=== PATIENT | female | born 1950 | race Caucasian/White ===

== ENCOUNTER 2018-01-10 14:43 | Outpatient (CLI) | payer MEDICARE | END 2018-01-10 14:44 | disposition home or self-care (01) | LOC: BICMAMMO 14:43 | PROVIDERS: ATTEND Family Medicine | DX: Z12.31 Encounter for screening mammogram for malignant neoplasm of breast (principal) | CPT/HCPCS: 77063; 77067 ==

== ENCOUNTER 2019-10-02 11:55 | Outpatient (CLI) | payer MEDICARE ==
--- NOTE | 2019-10-02 14:26 | MMO ---
Bilateral MAMMO Bilat Screen [facility]. CLINICAL HISTORY: Patient is 69 years old and is seen for screening. The patient has no family history of breast cancer. The patient has no personal history of cancer. VIEWS: The views performed were: bilateral craniocaudal with tomosynthesis and bilateral mediolateral oblique with tomosynthesis. FILMS COMPARED: The present examination has been compared to a prior imaging study performed at [facility] on 01/10/2018. This study has been interpreted with the assistance of computer-aided detection. MAMMOGRAM FINDINGS: There are scattered fibroglandular densities. There are no suspicious masses, suspicious calcifications, or new areas of architectural distortion. IMPRESSION: THERE IS NO MAMMOGRAPHIC EVIDENCE OF MALIGNANCY. A ROUTINE FOLLOW-UP MAMMOGRAM IN 1 YEAR IS RECOMMENDED. THE RESULTS OF THIS EXAM WERE SENT TO THE PATIENT. ACR BI-RADS Category 1 - Negative MAMMOGRAPHY NOTE: 1. A negative mammogram report should not delay a biopsy if a dominant of clinically suspicious mass is present. 2. Approximately 10% to 15% of breast cancers are not detected by mammography. 3. Adenosis and dense breasts may obscure an underlying neoplasm. Reported by: OLGA CANELA MD Electonically Signed: [id number]
== END 2019-10-02 11:56 | disposition home or self-care (01) ==
LOC: BICMAMMO 11:55
PROVIDERS: ATTEND Family Medicine
DX: Z12.31 Encounter for screening mammogram for malignant neoplasm of breast (principal)
CPT/HCPCS: 77063; 77067

== ENCOUNTER 2021-01-27 12:59 | Outpatient (CLI) | payer MEDICARE, OTHER | END 2021-01-27 13:00 | disposition home or self-care (01) | LOC: BICMAMMO 12:59 | PROVIDERS: ATTEND Family Medicine | DX: Z12.31 Encounter for screening mammogram for malignant neoplasm of breast (principal) | CPT/HCPCS: 77063; 77067 ==

== ENCOUNTER 2021-11-02 08:43 | Inpatient (IN) | payer MEDICARE, OTHER ==
[2021-11-02] MEDS ORDERED: niCARdipine 25 MG/10 ML VIAL ONE ×3 (09:09→09:18)
[2021-11-02] MEDS ORDERED: Mannitol 12.5 GM/50 ML ONE (09:11)
[2021-11-02] MEDS ORDERED: manNITOL 20% 500 ML ONE (09:16)
[2021-11-02 09:37] LABS: #Lymphocytes 0.4 thou/uL (1.20-3.40); #Monocytes 0.2 thou/uL (0.11-0.59); #Neutrophils 7.8 thou/uL (1.40-6.50); %Basophils 0.3 % (0.0-1.0); %Eosinophils 0.3 % (0.0-10.0); %Monocytes 2.7 % (0.0-10.0); %Neutrophils 91.7 % (42.0-75.0); Hemoglobin 14.5 g/dL (12.0-16.0); Mean Corpuscular HGB CONC 33.7 g/dL (32.0-36.0); Mean Platelet Volume 8.2 fL (7.4-10.4); Platelet Count 159 thou/uL (130-400); RBC Distribution Width 10.7 % (11.5-14.5); Red Blood Cell (RBC) Count 4.28 mill/uL (4.20-5.40); White Blood Cell (WBC) Count 8.5 thou/uL (4.8-10.8)
[2021-11-02 09:47] LABS: INR-International Normal Ratio 0.9; Prothrombin Time 12.7 sec (12.0-14.7)
[2021-11-02 09:50] LABS: PTT 22.7 sec (22.9-36.1)
[2021-11-02 10:03] LABS: ALT (SGPT) 17 U/L (8-55); AST (SGOT) 20 U/L (5-34); Albumin 4.2 g/dL (3.4-4.8); Alkaline Phosphatase 73 U/L (40-110); Anion Gap 17 mmol/L (10-20); BUN (Urea Nitrogen) 26 mg/dL (9.8-20.1); Bilirubin, Total 0.5 mg/dL (0.2-1.2); Calc. Creatinine Clearance 0 mL/min (70-130); Carbon Dioxide 20 mmol/L (23-31); Chloride 107 mmol/L (98-107); Glucose 145 mg/dL (83-110); Potassium 4.2 mmol/L (3.5-5.1); Protein, Total 7.2 g/dL (5.8-8.1); Sodium 140 mmol/L (136-145)
[2021-11-02 10:38] LABS: Bilirubin Negative (Negative); Blood, Urine Negative (Negative); Clarity Clear (Clear); Glucose, Urine (Dipstick) Normal (Negative); Ketone, Urine Negative (Negative); Leukocyte Negative Leu/uL (Negative); Nitrite Negative (Negative); Protein, Urine (Dipstick) 10 mg/dL (Neg-Trace); Specific Gravity, Urine 1.012 (1.002-1.036); Urobilinogen Normal mg/dL (Less than 2); pH, Urine 6.5 (5.0-9.0)
[2021-11-02] MEDS ORDERED: Ondansetron PF 4 MG/2 ML Vial IVP PRN (11:03)
[2021-11-02] MEDS ORDERED: Electrolyte Replacement Protocol 1 EACH IVPB ONE (11:03)
[2021-11-02] MEDS: Sodium Chloride 0.9% 1,000 ML IV SCH (11:15)
[2021-11-02 11:32] LABS: SARS-CoV-2 NAA Rapid Test DETECTED (NotDetected)
[2021-11-02] MEDS ORDERED: Electrolyte Replacement Protocol FS PRN (13:15)
[2021-11-02] MEDS: niCARdipine 25 MG in Sodium Chloride 0.9% 250 ML 250 ML IVPB PRN ×2 (16:13→21:37)
[2021-11-02] MEDS: Famotidine/PF 20 mg/2ml Vial SLOW IVP SCH (20:38)
[2021-11-03] MEDS: Sodium Chloride 0.9% 1,000 ML IV SCH ×2 (01:47→15:06)
[2021-11-03] MEDS: niCARdipine 25 MG in Sodium Chloride 0.9% 250 ML 250 ML IVPB PRN ×3 (03:25→18:26)
[2021-11-03 04:01] LABS: #Lymphocytes 0.4 thou/uL (1.20-3.40); #Monocytes 0.5 thou/uL (0.11-0.59); %Basophils 0.1 % (0.0-1.0); %Eosinophils 0.1 % (0.0-10.0); %Lymphocytes 3.6 % (21.0-51.0); %Monocytes 5.5 % (0.0-10.0); %Neutrophils 90.7 % (42.0-75.0); Hemoglobin 14.4 g/dL (12.0-16.0); Mean Corpuscular HGB CONC 35.3 g/dL (32.0-36.0); Mean Corpuscular Hemoglobin 35.6 pg (27.0-31.0); Mean Platelet Volume 8.1 fL (7.4-10.4); Platelet Count 165 thou/uL (130-400); Red Blood Cell (RBC) Count 4.06 mill/uL (4.20-5.40); White Blood Cell (WBC) Count 9.9 thou/uL (4.8-10.8)
[2021-11-03 04:21] LABS: Anion Gap 16 mmol/L (10-20); BUN (Urea Nitrogen) 16 mg/dL (9.8-20.1); Calc. Creatinine Clearance 63 mL/min (70-130); Calcium 9.9 mg/dL (7.8-10.44); Carbon Dioxide 20 mmol/L (23-31); Chloride 111 mmol/L (98-107); Cholesterol 146 mg/dl (< 200 Desired); Glucose 161 mg/dL (83-110); HDL Cholesterol 74 mg/dL (>60 Neg Risk); LDL Cholesterol, Calculated 64 mg/dL; Potassium 3.9 mmol/L (3.5-5.1); Sodium 143 mmol/L (136-145); Triglycerides 41 mg/dL (Less than 150)
[2021-11-03] MEDS ORDERED: FLU VACC QS2021-22(65YR UP)/PF 240 MCG/0.7 ML SYRINGE IM ONE (09:00)
[2021-11-03] MEDS: Famotidine/PF 20 mg/2ml Vial SLOW IVP SCH ×2 (09:23→21:02)
[2021-11-04 04:33] LABS: Anion Gap 13 mmol/L (10-20); BUN (Urea Nitrogen) 16 mg/dL (9.8-20.1); Calc. Creatinine Clearance 67 mL/min (70-130); Calcium 9.8 mg/dL (7.8-10.44); Carbon Dioxide 25 mmol/L (23-31); Chloride 112 mmol/L (98-107); Glucose 153 mg/dL (83-110); Potassium 3.6 mmol/L (3.5-5.1); Sodium 146 mmol/L (136-145)
[2021-11-04] MEDS: Sodium Chloride 0.9% 1,000 ML IV SCH (04:56)
[2021-11-04] MEDS: niCARdipine 25 MG in Sodium Chloride 0.9% 250 ML 250 ML IVPB PRN ×3 (05:50→20:18)
[2021-11-04] MEDS ORDERED: Mannitol 12.5 GM/50 ML SLOW IVP SCH (09:00)
[2021-11-04] MEDS: Famotidine/PF 20 mg/2ml Vial SLOW IVP SCH ×2 (09:45→20:17)
[2021-11-04] MEDS ORDERED: Communication Order-Pharmacy FS PRN (09:51)
[2021-11-04] MEDS: STERILE WATER IV SCH ×2 (11:19→23:24)
[2021-11-04] MEDS: SODIUM CHLORIDE IV SCH ×2 (11:19→23:24)
[2021-11-04 16:41] LABS: Sodium 151 mmol/L (136-145)
[2021-11-04] MEDS ORDERED: Acetaminophen 500 MG TAB PER TUBE SCH (18:00)
[2021-11-04 18:11] LABS: Sodium 151 mmol/L (136-145)
[2021-11-04 23:48] LABS: Sodium 155 mmol/L (136-145)
[2021-11-05 05:28] LABS: Band 9 % (5-11); Hemoglobin 13.5 g/dL (12.0-16.0); Lymphocytes 3 % (21-51); MDiff Complete? YES; Mean Corpuscular HGB CONC 33.7 g/dL (32.0-36.0); Mean Corpuscular Hemoglobin 34.3 pg (27.0-31.0); Mean Platelet Volume 8.1 fL (7.4-10.4); Monocytes 13 % (0-10); Neutrophil 75 % (42-75); Platelet Count 146 thou/uL (130-400); RBC Distribution Width 11.2 % (11.5-14.5); Red Blood Cell (RBC) Count 3.95 mill/uL (4.20-5.40); White Blood Cell (WBC) Count 4.7 thou/uL (4.8-10.8)
[2021-11-05 05:34] LABS: Anion Gap 16 mmol/L (10-20); BUN (Urea Nitrogen) 18 mg/dL (9.8-20.1); Calc. Creatinine Clearance 69 mL/min (70-130); Carbon Dioxide 23 mmol/L (23-31); Chloride 122 mmol/L (98-107); Glucose 151 mg/dL (83-110); Potassium 3.5 mmol/L (3.5-5.1); Sodium 157 mmol/L (136-145)
[2021-11-05] MEDS: Acetaminophen 650 MG/20.3 ML UDCUP PER TUBE SCH ×5 (06:13→23:31)
[2021-11-05] MEDS: niCARdipine 25 MG in Sodium Chloride 0.9% 250 ML 250 ML IVPB PRN ×3 (09:22→20:25)
[2021-11-05] MEDS: Famotidine/PF 20 mg/2ml Vial SLOW IVP SCH ×2 (09:22→20:25)
[2021-11-05] MEDS ORDERED: Sodium Chloride 0.9% 1,000 ML IV SCH (09:30)
[2021-11-05] MEDS: Potassium Chloride 20 MEQ in Premix Bag 1 BAG IVPB SCH ×2 (09:50→12:44)
[2021-11-05] MEDS ORDERED: Potassium Chloride 20 MEQ in Premix Bag 1 BAG IVPB SCH (12:45)
[2021-11-05 14:22] LABS: Anion Gap 17 mmol/L (10-20); BUN (Urea Nitrogen) 19 mg/dL (9.8-20.1); Calc. Creatinine Clearance 60 mL/min (70-130); Calcium 9.3 mg/dL (7.8-10.44); Carbon Dioxide 25 mmol/L (23-31); Chloride 121 mmol/L (98-107); Glucose 160 mg/dL (83-110); Potassium 3.6 mmol/L (3.5-5.1); Sodium 159 mmol/L (136-145)
[2021-11-05] MEDS: Sodium Chloride 0.45% 1,000 ML IV SCH (17:01)
[2021-11-05 19:00] LABS: Sodium 159 mmol/L (136-145)
[2021-11-06 01:42] LABS: Sodium 158 mmol/L (136-145)
[2021-11-06] MEDS: niCARdipine 25 MG in Sodium Chloride 0.9% 250 ML 250 ML IVPB PRN ×4 (02:57→21:58)
[2021-11-06] MEDS: Acetaminophen 650 MG/20.3 ML UDCUP PER TUBE SCH ×3 (06:15→18:35)
[2021-11-06 06:22] LABS: Anion Gap 12 mmol/L (10-20); BUN (Urea Nitrogen) 21 mg/dL (9.8-20.1); Calc. Creatinine Clearance 57 mL/min (70-130); Calcium 9.5 mg/dL (7.8-10.44); Carbon Dioxide 26 mmol/L (23-31); Chloride 122 mmol/L (98-107); Glucose 156 mg/dL (83-110); Potassium 3.7 mmol/L (3.5-5.1); Sodium 156 mmol/L (136-145)
[2021-11-06] MEDS: Sodium Chloride 0.45% 1,000 ML IV SCH ×2 (06:34→18:38)
[2021-11-06] MEDS ORDERED: Metoprolol Tartrate 25 MG TAB PO SCH (09:00)
[2021-11-06] MEDS: Famotidine/PF 20 mg/2ml Vial SLOW IVP SCH ×2 (09:18→20:03)
[2021-11-06 09:22] LABS: Band 38 % (5-11); Hemoglobin 15.6 g/dL (12.0-16.0); Lymphocytes 2 % (21-51); MDiff Complete? YES; Macrocytosis SLIGHT = 6-15 cells (100X) (0-5/hpf); Mean Corpuscular HGB CONC 33.5 g/dL (32.0-36.0); Mean Platelet Volume 7.9 fL (7.4-10.4); Monocytes 9 % (0-10); Neutrophil 46 % (42-75); Platelet Count 136 thou/uL (130-400); Platelet Morphology Comment Appears Adequate; RBC Distribution Width 11.3 % (11.5-14.5); Reactive Lymphocytes 5 % (0-10); White Blood Cell (WBC) Count 5.1 thou/uL (4.8-10.8)
[2021-11-06] MEDS ORDERED: Meropenem 2 GM in Admixture Fee 1 EACH IVPB SCH (14:00)
[2021-11-06] MEDS: Meropenem 2 GM in Sodium Chloride 0.9% 100 ML IVPB SCH ×2 (15:56→22:21)
[2021-11-06] MEDS: hydrALAZINE 20 MG/ML VIAL SLOW IVP PRN (16:14)
[2021-11-06 17:46] LABS: Sodium 156 mmol/L (136-145)
[2021-11-06 18:57] LABS: Sodium 155 mmol/L (136-145)
[2021-11-06] MEDS: Amlodipine 5 MG TAB PO SCH (20:03)
[2021-11-06] MEDS: Metoprolol Tartrate 50 MG TAB PO SCH (20:03)
[2021-11-06] MEDS: Sodium Chloride 0.9% 1,000 ML IV SCH (22:00)
[2021-11-07] MEDS: Acetaminophen 650 MG/20.3 ML UDCUP PER TUBE SCH ×4 (00:01→18:29)
[2021-11-07 00:11] LABS: Sodium 154 mmol/L (136-145)
[2021-11-07] MEDS: niCARdipine 25 MG in Sodium Chloride 0.9% 250 ML 250 ML IVPB PRN ×2 (04:21→13:15)
[2021-11-07 05:31] LABS: Band 31 % (5-11); Hemoglobin 15.6 g/dL (12.0-16.0); Lymphocytes 3 % (21-51); MDiff Complete? YES; Macrocytosis SLIGHT = 6-15 cells (100X) (0-5/hpf); Mean Corpuscular HGB CONC 32.4 g/dL (32.0-36.0); Mean Corpuscular Hemoglobin 33.1 pg (27.0-31.0); Mean Platelet Volume 7.8 fL (7.4-10.4); Monocytes 5 % (0-10); Neutrophil 61 % (42-75); Platelet Count 137 thou/uL (130-400); Platelet Morphology Comment Appears Decreased; RBC Distribution Width 11.4 % (11.5-14.5); Red Blood Cell (RBC) Count 4.72 mill/uL (4.20-5.40); White Blood Cell (WBC) Count 6.5 thou/uL (4.8-10.8)
[2021-11-07 05:33] LABS: ALT (SGPT) 95 U/L (8-55); AST (SGOT) 53 U/L (5-34); Albumin 3.3 g/dL (3.4-4.8); Alkaline Phosphatase 83 U/L (40-110); Anion Gap 16 mmol/L (10-20); BUN (Urea Nitrogen) 24 mg/dL (9.8-20.1); Bilirubin, Total 0.3 mg/dL (0.2-1.2); Calc. Creatinine Clearance 54 mL/min (70-130); Calcium 9.1 mg/dL (7.8-10.44); Carbon Dioxide 21 mmol/L (23-31); Chloride 122 mmol/L (98-107); Globulin 3.5 g/dL (2.4-3.5); Glucose 165 mg/dL (83-110); Phosphorus 2.3 mg/dL (2.3-4.7); Potassium 3.5 mmol/L (3.5-5.1); Protein, Total 6.8 g/dL (5.8-8.1); Sodium 155 mmol/L (136-145)
[2021-11-07] MEDS: Meropenem 2 GM in Sodium Chloride 0.9% 100 ML IVPB SCH ×3 (06:35→20:50)
[2021-11-07] MEDS ORDERED: Potassium Chloride 20 MEQ TAB PO SCH (07:00)
[2021-11-07] MEDS ORDERED: Magnesium 2 GM/50 ML 2 GM in Premix Bag 1 BAG IVPB SCH (07:00)
[2021-11-07 07:02] LABS: Actual Bicarbonate (HCO3a) 21.3 mEq/L (22-28); Base Excess (BEa) -0.8 mEq/L (-2.0 to +3.0); CO2 Tension 28.9 mmHg (35.0-45.0); Calcium, Ionized (arterial) 1.17 mmol/L (1.12-1.30); Carboxyhemoglobin (COHb) 0.8 gm% (0.0-3.0); Hemoglobin (Hb) 15.4 g/dL (12.0-16.0); O2 Tension (PaO2), arterial 69.2 mmHg (> 70.0); Potassium - ABG Lab 3.44 mmol/L (3.70-5.30); pH, Arterial 7.49 (7.35-7.45)
[2021-11-07 07:39] LABS: ALV-art Gradient 44.405 mmHg (0-20); Puncture Site RRA
[2021-11-07] MEDS: Famotidine/PF 20 mg/2ml Vial SLOW IVP SCH ×2 (09:23→20:51)
[2021-11-07] MEDS: Metoprolol Tartrate 50 MG TAB PO SCH ×2 (09:24→20:50)
[2021-11-07] MEDS: Amlodipine 5 MG TAB PO SCH ×2 (09:24→20:50)
[2021-11-07] MEDS ORDERED: Potassium Bicarbonate/Cit Ac 20 MEQ TAB PER TUBE SCH (09:30)
[2021-11-07 12:56] LABS: Sodium 155 mmol/L (136-145)
[2021-11-07] MEDS: Sodium Chloride 0.9% 1,000 ML IV SCH (13:14)
[2021-11-08] MEDS: Acetaminophen 650 MG/20.3 ML UDCUP PER TUBE SCH ×5 (00:11→23:51)
[2021-11-08] MEDS: Sodium Chloride 0.9% 1,000 ML IV SCH (04:27)
[2021-11-08 05:46] LABS: Band 21 % (5-11); Eosinophils 1 % (0-10); Hemoglobin 15.7 g/dL (12.0-16.0); Lymphocytes 16 % (21-51); MDiff Complete? YES; Mean Corpuscular Hemoglobin 33.3 pg (27.0-31.0); Mean Platelet Volume 8.6 fL (7.4-10.4); Monocytes 4 % (0-10); Neutrophil 58 % (42-75); Platelet Count 129 thou/uL (130-400); RBC Distribution Width 11.4 % (11.5-14.5); Red Blood Cell (RBC) Count 4.72 mill/uL (4.20-5.40); White Blood Cell (WBC) Count 5.4 thou/uL (4.8-10.8)
[2021-11-08 05:57] LABS: Anion Gap 17 mmol/L (10-20); BUN (Urea Nitrogen) 33 mg/dL (9.8-20.1); Calc. Creatinine Clearance 55 mL/min (70-130); Calcium 9.2 mg/dL (7.8-10.44); Carbon Dioxide 21 mmol/L (23-31); Chloride 123 mmol/L (98-107); Glucose 133 mg/dL (83-110); Potassium 4.9 mmol/L (3.5-5.1); Sodium 156 mmol/L (136-145)
[2021-11-08] MEDS: Meropenem 2 GM in Sodium Chloride 0.9% 100 ML IVPB SCH (06:16)
[2021-11-08] MEDS: Amlodipine 5 MG TAB PO SCH ×2 (09:24→20:38)
[2021-11-08] MEDS: Famotidine/PF 20 mg/2ml Vial SLOW IVP SCH ×2 (09:24→20:38)
[2021-11-08] MEDS: Metoprolol Tartrate 25 MG TAB PO SCH ×2 (09:25→20:38)
[2021-11-08 13:05] LABS: Sodium 157 mmol/L (136-145)
[2021-11-08] MEDS ORDERED: Meropenem 1 GM in Sodium Chloride 0.9% 100 ML IVPB SCH (14:00)
[2021-11-08] MEDS: Sodium Chloride 0.45% 1,000 ML IV SCH (14:10)
[2021-11-08] MEDS: Meropenem 1 GM in Sodium Chloride 0.9% 100 ML IVPB SCH ×2 (14:48→20:38)
[2021-11-08 18:45] LABS: Sodium 156 mmol/L (136-145)
[2021-11-09 00:49] LABS: Sodium 156 mmol/L (136-145)
[2021-11-09] MEDS: Sodium Chloride 0.45% 1,000 ML IV SCH ×2 (03:58→06:02)
[2021-11-09 04:25] LABS: Anion Gap 14 mmol/L (10-20); BUN (Urea Nitrogen) 31 mg/dL (9.8-20.1); Calc. Creatinine Clearance 61 mL/min (70-130); Calcium 9.2 mg/dL (7.8-10.44); Carbon Dioxide 21 mmol/L (23-31); Chloride 124 mmol/L (98-107); Glucose 146 mg/dL (83-110); Potassium 4.3 mmol/L (3.5-5.1); Sodium 155 mmol/L (136-145)
[2021-11-09 04:59] LABS: Band 12 % (5-11); Hemoglobin 15.9 g/dL (12.0-16.0); Lymphocytes 8 % (21-51); MDiff Complete? YES; Mean Corpuscular HGB CONC 33.2 g/dL (32.0-36.0); Mean Platelet Volume 9.6 fL (7.4-10.4); Metamyelocyte 1 % (0-0); Monocytes 9 % (0-10); Myelocyte 2 % (0-0); Neutrophil 68 % (42-75); Platelet Count 101 thou/uL (130-400); Platelet Morphology Comment Appears Decreased; RBC Distribution Width 11.5 % (11.5-14.5); Red Blood Cell (RBC) Count 4.68 mill/uL (4.20-5.40); White Blood Cell (WBC) Count 3.3 thou/uL (4.8-10.8)
[2021-11-09] MEDS: Meropenem 1 GM in Sodium Chloride 0.9% 100 ML IVPB SCH ×3 (05:03→21:41)
[2021-11-09] MEDS: Acetaminophen 650 MG/20.3 ML UDCUP PER TUBE SCH ×3 (05:03→17:35)
[2021-11-09 08:10] LABS: Sodium 155 mmol/L (136-145)
[2021-11-09] MEDS: Famotidine/PF 20 mg/2ml Vial SLOW IVP SCH ×2 (08:33→20:41)
[2021-11-09] MEDS: Metoprolol Tartrate 25 MG TAB PO SCH ×2 (08:33→20:41)
[2021-11-09] MEDS: Amlodipine 5 MG TAB PO SCH ×2 (08:33→20:40)
[2021-11-09] MEDS: Sodium Chloride 0.9% 1,000 ML IV SCH (10:46)
[2021-11-09] MEDS ORDERED: Acetaminophen 650 MG/20.3 ML UDCUP ONE (13:58)
[2021-11-09 14:05] LABS: Sodium 155 mmol/L (136-145)
[2021-11-09] MEDS ORDERED: Meropenem 1 GM in Sodium Chloride 0.9% 100 ML IVPB SCH (18:00)
[2021-11-09 18:46] LABS: Sodium 157 mmol/L (136-145)
[2021-11-10 00:51] LABS: Sodium 155 mmol/L (136-145)
[2021-11-10] MEDS: Acetaminophen 650 MG/20.3 ML UDCUP PER TUBE SCH ×4 (00:53→18:35)
[2021-11-10] MEDS: hydrALAZINE 20 MG/ML VIAL SLOW IVP PRN ×3 (01:37→14:18)
[2021-11-10] MEDS: Sodium Chloride 0.9% 1,000 ML IV SCH ×2 (02:14→06:28)
[2021-11-10 05:07] LABS: Band 5 % (5-11); Elliptocytes SLIGHT = 2-5 cells (100X) (0-1/hpf); Hemoglobin 16.8 g/dL (12.0-16.0); Large Platelets SLIGHT; Lymphocytes 12 % (21-51); MDiff Complete? YES; Macrocytosis MODERATE=16-30 cells (100X) (0-5/hpf); Mean Corpuscular HGB CONC 32.3 g/dL (32.0-36.0); Mean Corpuscular Hemoglobin 34.3 pg (27.0-31.0); Mean Platelet Volume 10.5 fL (7.4-10.4); Metamyelocyte 2 % (0-0); Monocytes 7 % (0-10); Myelocyte 2 % (0-0); Neutrophil 72 % (42-75); Ovalocytes SLIGHT = 2-5 cells (100X) (0-1/hpf); Platelet Count 100 thou/uL (130-400); Platelet Morphology Comment Appears Adequate; RBC Distribution Width 11.5 % (11.5-14.5); Red Blood Cell (RBC) Count 4.89 mill/uL (4.20-5.40); White Blood Cell (WBC) Count 6.3 thou/uL (4.8-10.8)
[2021-11-10] MEDS: Meropenem 1 GM in Sodium Chloride 0.9% 100 ML IVPB SCH ×3 (05:19→21:43)
[2021-11-10 07:41] LABS: ALT (SGPT) 127 U/L (8-55); AST (SGOT) 128 U/L (5-34); Albumin 3.1 g/dL (3.4-4.8); Alkaline Phosphatase 219 U/L (40-110); Anion Gap 16 mmol/L (10-20); BUN (Urea Nitrogen) 33 mg/dL (9.8-20.1); Bilirubin, Total 0.5 mg/dL (0.2-1.2); Calc. Creatinine Clearance 57 mL/min (70-130); Calcium 9.3 mg/dL (7.8-10.44); Carbon Dioxide 20 mmol/L (23-31); Chloride 124 mmol/L (98-107); Globulin 3.5 g/dL (2.4-3.5); Glucose 154 mg/dL (83-110); Magnesium 2.4 mg/dL (1.6-2.6); Protein, Total 6.6 g/dL (5.8-8.1); Sodium 156 mmol/L (136-145)
[2021-11-10] MEDS ORDERED: VANC IVPB PRN (08:18)
[2021-11-10] MEDS: VANCOMYCIN 1.25 GM/250 ML BAG 1.25 GM in Premix Bag 1 BAG IVPB SCH (10:09)
[2021-11-10] MEDS: Amlodipine 5 MG TAB PO SCH ×2 (10:10→21:43)
[2021-11-10] MEDS: Famotidine/PF 20 mg/2ml Vial SLOW IVP SCH ×2 (10:10→21:43)
[2021-11-10] MEDS: Metoprolol Tartrate 25 MG TAB PO SCH ×3 (10:10→22:00)
[2021-11-10 13:00] LABS: Sodium 156 mmol/L (136-145)
[2021-11-10] MEDS: Sodium Chloride 0.45% 1,000 ML IV SCH (13:20)
[2021-11-10 21:26] LABS: Bacteria/HPF None Seen HPF (None Seen); Bilirubin Negative (Negative); Blood, Urine 2+ (Negative); Clarity Clear (Clear); Glucose, Urine (Dipstick) Normal (Negative); Ketone, Urine Negative (Negative); Leukocyte Negative Leu/uL (Negative); Nitrite Negative (Negative); Protein, Urine (Dipstick) 100 mg/dL (Neg-Trace); Specific Gravity, Urine 1.024 (1.002-1.036); Squamous Epithelial 0-3 HPF (0-3); Urobilinogen Normal mg/dL (Less than 2); Yeast-Budding 1+ HPF (None Seen); pH, Urine 5.5 (5.0-9.0)
[2021-11-10 21:26] LABS: Sodium 155 mmol/L (136-145)
[2021-11-10 21:36] LABS: Urine Culture Reflex Yes Yes
[2021-11-11] MEDS: Acetaminophen 650 MG/20.3 ML UDCUP PER TUBE SCH ×5 (00:07→23:16)
[2021-11-11] MEDS: hydrALAZINE 20 MG/ML VIAL SLOW IVP PRN ×2 (03:07→22:06)
[2021-11-11 04:22] LABS: Band 3 % (5-11); Hemoglobin 15.7 g/dL (12.0-16.0); Lymphocytes 9 % (21-51); MDiff Complete? YES; Macrocytosis SLIGHT = 6-15 cells (100X) (0-5/hpf); Mean Corpuscular HGB CONC 31.3 g/dL (32.0-36.0); Mean Corpuscular Hemoglobin 32.2 pg (27.0-31.0); Mean Platelet Volume 9.7 fL (7.4-10.4); Monocytes 13 % (0-10); Neutrophil 74 % (42-75); Platelet Count 166 thou/uL (130-400); Platelet Morphology Comment Appears Adequate; RBC Distribution Width 11.6 % (11.5-14.5); Reactive Lymphocytes 1 % (0-10); Red Blood Cell (RBC) Count 4.87 mill/uL (4.20-5.40); White Blood Cell (WBC) Count 8.3 thou/uL (4.8-10.8)
[2021-11-11 04:42] LABS: ALT (SGPT) 185 U/L (8-55); AST (SGOT) 153 U/L (5-34); Alkaline Phosphatase 230 U/L (40-110); Anion Gap 18 mmol/L (10-20); BUN (Urea Nitrogen) 36 mg/dL (9.8-20.1); Bilirubin, Total 0.6 mg/dL (0.2-1.2); Calc. Creatinine Clearance 63 mL/min (70-130); Calcium 9.5 mg/dL (7.8-10.44); Carbon Dioxide 18 mmol/L (23-31); Chloride 124 mmol/L (98-107); Globulin 3.7 g/dL (2.4-3.5); Glucose 146 mg/dL (83-110); Magnesium 2.5 mg/dL (1.6-2.6); Potassium 3.9 mmol/L (3.5-5.1); Protein, Total 6.7 g/dL (5.8-8.1); Sodium 156 mmol/L (136-145)
[2021-11-11] MEDS: Sodium Chloride 0.45% 1,000 ML IV SCH ×2 (04:57→18:59)
[2021-11-11] MEDS: Meropenem 1 GM in Sodium Chloride 0.9% 100 ML IVPB SCH ×3 (05:12→20:52)
[2021-11-11] MEDS: Metoprolol Tartrate 25 MG TAB PO SCH ×2 (10:37→20:51)
[2021-11-11] MEDS: Famotidine/PF 20 mg/2ml Vial SLOW IVP SCH ×2 (10:37→20:52)
[2021-11-11] MEDS: VANCOMYCIN 1.25 GM/250 ML BAG 1.25 GM in Premix Bag 1 BAG IVPB SCH (10:37)
[2021-11-11] MEDS: Amlodipine 5 MG TAB PO SCH ×2 (10:38→20:51)
[2021-11-11] MEDS: Metamucil PACK PER TUBE SCH (12:37)
[2021-11-11 16:18] LABS: Sodium 158 mmol/L (136-145)
[2021-11-11] MEDS: Atorvastatin Calcium 10 MG TAB PER TUBE SCH (20:54)
[2021-11-11 21:23] LABS: Sodium 158 mmol/L (136-145)
[2021-11-12 04:27] LABS: Band 5 % (5-11); Hemoglobin 14.9 g/dL (12.0-16.0); Lymphocytes 8 % (21-51); MDiff Complete? YES; Macrocytosis SLIGHT = 6-15 cells (100X) (0-5/hpf); Mean Corpuscular HGB CONC 33.4 g/dL (32.0-36.0); Mean Corpuscular Hemoglobin 34.6 pg (27.0-31.0); Mean Platelet Volume 9.6 fL (7.4-10.4); Monocytes 3 % (0-10); Neutrophil 84 % (42-75); Nucleated RBC 1 % (0); Platelet Count 183 thou/uL (130-400); Platelet Morphology Comment Appears Adequate; RBC Distribution Width 11.6 % (11.5-14.5); White Blood Cell (WBC) Count 6.4 thou/uL (4.8-10.8)
[2021-11-12 04:42] LABS: ALT (SGPT) 265 U/L (8-55); AST (SGOT) 189 U/L (5-34); Albumin 2.7 g/dL (3.4-4.8); Alkaline Phosphatase 240 U/L (40-110); Anion Gap 16 mmol/L (10-20); BUN (Urea Nitrogen) 37 mg/dL (9.8-20.1); Bilirubin, Total 0.5 mg/dL (0.2-1.2); Calc. Creatinine Clearance 58 mL/min (70-130); Calcium 9.3 mg/dL (7.8-10.44); Carbon Dioxide 18 mmol/L (23-31); Chloride 125 mmol/L (98-107); Globulin 3.8 g/dL (2.4-3.5); Glucose 112 mg/dL (83-110); Magnesium 2.5 mg/dL (1.6-2.6); Potassium 4.1 mmol/L (3.5-5.1); Protein, Total 6.5 g/dL (5.8-8.1); Sodium 155 mmol/L (136-145)
[2021-11-12] MEDS: Sodium Chloride 0.45% 1,000 ML IV SCH ×2 (05:03→14:52)
[2021-11-12] MEDS: Meropenem 1 GM in Sodium Chloride 0.9% 100 ML IVPB SCH ×3 (05:04→21:21)
[2021-11-12] MEDS: hydrALAZINE 20 MG/ML VIAL SLOW IVP PRN (05:04)
[2021-11-12] MEDS: Acetaminophen 650 MG/20.3 ML UDCUP PER TUBE SCH ×3 (05:10→20:03)
[2021-11-12] MEDS ORDERED: PROPOFOL 200 MG/20 ML VIAL ONE (08:34)
[2021-11-12] MEDS ORDERED: Promethazine HCl 25 MG/ML VIAL IVPB PRN (08:51)
[2021-11-12] MEDS ORDERED: Promethazine HCl 25 MG/ML VIAL IM PRN (08:51)
[2021-11-12] MEDS ORDERED: Ondansetron HCl/PF 4 MG/2 ML Vial IVP PRN (08:51)
[2021-11-12] MEDS: VANCOMYCIN 1.25 GM/250 ML BAG 1.25 GM in Premix Bag 1 BAG IVPB SCH ×2 (09:00→11:47)
[2021-11-12] MEDS: Metoprolol Tartrate 25 MG TAB PO SCH ×2 (09:00→21:21)
[2021-11-12] MEDS: Metamucil PACK PER TUBE SCH ×2 (09:00→21:20)
[2021-11-12] MEDS: Famotidine/PF 20 mg/2ml Vial SLOW IVP SCH ×3 (09:00→21:20)
[2021-11-12] MEDS: Amlodipine 5 MG TAB PO SCH ×3 (09:00→21:20)
[2021-11-12 16:05] LABS: Sodium 156 mmol/L (136-145)
[2021-11-12] MEDS: Atorvastatin Calcium 10 MG TAB PER TUBE SCH (21:20)
[2021-11-13] MEDS: Sodium Chloride 0.45% 1,000 ML IV SCH ×4 (02:21→22:49)
[2021-11-13] MEDS: Meropenem 1 GM in Sodium Chloride 0.9% 100 ML IVPB SCH ×3 (06:42→22:49)
[2021-11-13 08:52] LABS: #Eosinphils 0.1 thou/uL (0.0-0.7); #Lymphocytes 0.6 thou/uL (1.20-3.40); #Monocytes 0.4 thou/uL (0.11-0.59); #Neutrophils 5.4 thou/uL (1.40-6.50); %Basophils 0.1 % (0.0-1.0); %Eosinophils 1.1 % (0.0-10.0); %Lymphocytes 8.8 % (21.0-51.0); %Monocytes 6.2 % (0.0-10.0); %Neutrophils 83.8 % (42.0-75.0); Hemoglobin 13.7 g/dL (12.0-16.0); Mean Corpuscular HGB CONC 33.2 g/dL (32.0-36.0); Mean Corpuscular Hemoglobin 33.8 pg (27.0-31.0); Platelet Count 214 thou/uL (130-400); RBC Distribution Width 11.4 % (11.5-14.5); Red Blood Cell (RBC) Count 4.05 mill/uL (4.20-5.40); White Blood Cell (WBC) Count 6.4 thou/uL (4.8-10.8)
[2021-11-13 09:00] LABS: Vancomycin, Trough 14.7 ug/mL
[2021-11-13 09:13] LABS: ALT (SGPT) 181 U/L (8-55); AST (SGOT) 78 U/L (5-34); Albumin 2.7 g/dL (3.4-4.8); Alkaline Phosphatase 213 U/L (40-110); Anion Gap 15 mmol/L (10-20); BUN (Urea Nitrogen) 35 mg/dL (9.8-20.1); Bilirubin, Total 0.8 mg/dL (0.2-1.2); Calc. Creatinine Clearance 63 mL/min (70-130); Calcium 9.1 mg/dL (7.8-10.44); Carbon Dioxide 18 mmol/L (23-31); Chloride 123 mmol/L (98-107); Globulin 3.4 g/dL (2.4-3.5); Glucose 101 mg/dL (83-110); Magnesium 2.5 mg/dL (1.6-2.6); Potassium 3.6 mmol/L (3.5-5.1); Protein, Total 6.1 g/dL (5.8-8.1); Sodium 152 mmol/L (136-145)
[2021-11-13] MEDS: Amlodipine 5 MG TAB PO SCH ×2 (10:12→19:53)
[2021-11-13] MEDS: Vancomycin 1.5 GRAM/300 ML BAG 1.5 GM in Premix Bag 1 BAG IVPB SCH (10:12)
[2021-11-13] MEDS: Metoprolol Tartrate 25 MG TAB PO SCH ×2 (10:13→19:53)
[2021-11-13] MEDS: Metamucil PACK PER TUBE SCH ×2 (10:13→19:53)
[2021-11-13] MEDS: Famotidine/PF 20 mg/2ml Vial SLOW IVP SCH (10:13)
[2021-11-13] MEDS: VANCOMYCIN 1.25 GM/250 ML BAG 1.25 GM in Premix Bag 1 BAG IVPB SCH (11:10)
[2021-11-13] MEDS: Acetaminophen 325 MG TAB PO PRN (19:52)
[2021-11-13] MEDS: Atorvastatin Calcium 10 MG TAB PER TUBE SCH (19:53)
[2021-11-14 04:07] LABS: #Eosinphils 0.2 thou/uL (0.0-0.7); #Lymphocytes 0.5 thou/uL (1.20-3.40); #Monocytes 0.4 thou/uL (0.11-0.59); #Neutrophils 5.8 thou/uL (1.40-6.50); %Basophils 0.2 % (0.0-1.0); %Eosinophils 2.6 % (0.0-10.0); %Lymphocytes 7.7 % (21.0-51.0); %Neutrophils 83.5 % (42.0-75.0); Hemoglobin 13.4 g/dL (12.0-16.0); Mean Corpuscular HGB CONC 32.9 g/dL (32.0-36.0); Mean Corpuscular Hemoglobin 33.3 pg (27.0-31.0); Mean Platelet Volume 8.7 fL (7.4-10.4); Platelet Count 282 thou/uL (130-400); RBC Distribution Width 11.2 % (11.5-14.5); Red Blood Cell (RBC) Count 4.02 mill/uL (4.20-5.40); White Blood Cell (WBC) Count 6.9 thou/uL (4.8-10.8)
[2021-11-14 04:33] LABS: Anion Gap 12 mmol/L (10-20); BUN (Urea Nitrogen) 43 mg/dL (9.8-20.1); Calc. Creatinine Clearance 56 mL/min (70-130); Calcium 8.8 mg/dL (7.8-10.44); Carbon Dioxide 21 mmol/L (23-31); Chloride 121 mmol/L (98-107); Glucose 164 mg/dL (83-110); Potassium 3.7 mmol/L (3.5-5.1); Sodium 150 mmol/L (136-145)
[2021-11-14] MEDS: Meropenem 1 GM in Sodium Chloride 0.9% 100 ML IVPB SCH ×2 (06:05→18:15)
[2021-11-14 09:32] VITALS: BMI 28.8
[2021-11-14] MEDS: Metamucil PACK PER TUBE SCH ×2 (09:58→19:56)
[2021-11-14] MEDS: Metoprolol Tartrate 25 MG TAB PO SCH ×2 (09:58→21:02)
[2021-11-14] MEDS: Amlodipine 5 MG TAB PO SCH ×2 (09:58→21:02)
[2021-11-14] MEDS: Cyanocobalamin (Vitamin B-12) 1,000 MCG TAB PER TUBE SCH (09:58)
[2021-11-14] MEDS: Folic Acid 1 MG TAB PER TUBE SCH (09:58)
[2021-11-14] MEDS: Multivit, Therapeutic 1 TAB PER TUBE SCH (09:58)
[2021-11-14] MEDS: Vancomycin 1.5 GRAM/300 ML BAG 1.5 GM in Premix Bag 1 BAG IVPB SCH (09:59)
[2021-11-14] MEDS: Lansoprazole 3 MG/ML ORAL SUSPENSION PER TUBE SCH (09:59)
[2021-11-14] MEDS: Sodium Chloride 0.45% 1,000 ML IV SCH (18:15)
[2021-11-14] MEDS: Atorvastatin Calcium 10 MG TAB PER TUBE SCH (19:57)
[2021-11-15 04:03] LABS: #Eosinphils 0.3 thou/uL (0.0-0.7); #Lymphocytes 0.5 thou/uL (1.20-3.40); #Monocytes 0.3 thou/uL (0.11-0.59); #Neutrophils 5.8 thou/uL (1.40-6.50); %Basophils 0.3 % (0.0-1.0); %Eosinophils 4.1 % (0.0-10.0); %Lymphocytes 7.4 % (21.0-51.0); %Monocytes 3.7 % (0.0-10.0); %Neutrophils 84.6 % (42.0-75.0); Hemoglobin 12.3 g/dL (12.0-16.0); Mean Corpuscular HGB CONC 33.6 g/dL (32.0-36.0); Mean Corpuscular Hemoglobin 33.6 pg (27.0-31.0); Mean Platelet Volume 8.4 fL (7.4-10.4); Platelet Count 275 thou/uL (130-400); RBC Distribution Width 11.2 % (11.5-14.5); Red Blood Cell (RBC) Count 3.67 mill/uL (4.20-5.40); White Blood Cell (WBC) Count 6.9 thou/uL (4.8-10.8)
[2021-11-15] MEDS: Sodium Chloride 0.45% 1,000 ML IV SCH (04:14)
[2021-11-15 04:24] LABS: Anion Gap 11 mmol/L (10-20); BUN (Urea Nitrogen) 40 mg/dL (9.8-20.1); Calc. Creatinine Clearance 70 mL/min (70-130); Calcium 8.6 mg/dL (7.8-10.44); Carbon Dioxide 24 mmol/L (23-31); Chloride 116 mmol/L (98-107); Glucose 105 mg/dL (83-110); Potassium 3.8 mmol/L (3.5-5.1); Sodium 147 mmol/L (136-145)
[2021-11-15] MEDS: Meropenem 1 GM in Sodium Chloride 0.9% 100 ML IVPB SCH ×3 (06:13→21:45)
[2021-11-15] MEDS: Cyanocobalamin (Vitamin B-12) 1,000 MCG TAB PER TUBE SCH (09:13)
[2021-11-15] MEDS: Metoprolol Tartrate 25 MG TAB PO SCH ×2 (09:13→22:01)
[2021-11-15] MEDS: Multivit, Therapeutic 1 TAB PER TUBE SCH (09:13)
[2021-11-15] MEDS: Folic Acid 1 MG TAB PER TUBE SCH (09:13)
[2021-11-15] MEDS: Vancomycin 1.5 GRAM/300 ML BAG 1.5 GM in Premix Bag 1 BAG IVPB SCH (09:13)
[2021-11-15] MEDS: Amlodipine 5 MG TAB PO SCH ×2 (09:13→22:01)
[2021-11-15] MEDS: Lansoprazole 3 MG/ML ORAL SUSPENSION PER TUBE SCH (09:13)
[2021-11-15] MEDS: Metamucil PACK PER TUBE SCH ×2 (09:14→21:45)
[2021-11-15 09:16] LABS: Vancomycin, Trough 18.6 ug/mL
[2021-11-15] MEDS: Atorvastatin Calcium 10 MG TAB PER TUBE SCH (21:45)
[2021-11-16 04:15] LABS: Anion Gap 12 mmol/L (10-20); BUN (Urea Nitrogen) 33 mg/dL (9.8-20.1); Calc. Creatinine Clearance 83 mL/min (70-130); Calcium 8.4 mg/dL (7.8-10.44); Carbon Dioxide 25 mmol/L (23-31); Chloride 110 mmol/L (98-107); Glucose 112 mg/dL (83-110); Potassium 3.8 mmol/L (3.5-5.1); Sodium 143 mmol/L (136-145)
[2021-11-16] MEDS: Sodium Chloride 0.45% 1,000 ML IV SCH ×2 (05:01→16:23)
[2021-11-16] MEDS: Meropenem 1 GM in Sodium Chloride 0.9% 100 ML IVPB SCH ×2 (05:01→16:23)
[2021-11-16] MEDS: Lansoprazole 3 MG/ML ORAL SUSPENSION PER TUBE SCH (09:55)
[2021-11-16] MEDS: Folic Acid 1 MG TAB PER TUBE SCH (09:55)
[2021-11-16] MEDS: Multivit, Therapeutic 1 TAB PER TUBE SCH (09:55)
[2021-11-16] MEDS: Amlodipine 5 MG TAB PO SCH ×2 (09:55→20:07)
[2021-11-16] MEDS: Vancomycin 1.5 GRAM/300 ML BAG 1.5 GM in Premix Bag 1 BAG IVPB SCH (09:55)
[2021-11-16] MEDS: Metamucil PACK PER TUBE SCH ×2 (09:55→20:07)
[2021-11-16] MEDS: Cyanocobalamin (Vitamin B-12) 1,000 MCG TAB PER TUBE SCH (09:55)
[2021-11-16] MEDS: Metoprolol Tartrate 25 MG TAB PO SCH ×2 (09:55→20:07)
[2021-11-16 15:42] VITALS: BP 118/74
[2021-11-16 19:59] VITALS: TEMP 97.3
[2021-11-16] MEDS: Acetaminophen 325 MG TAB PO PRN (20:07)
[2021-11-16] MEDS: Atorvastatin Calcium 10 MG TAB PER TUBE SCH (20:07)
== END 2021-11-16 20:45 | DRG 64 ==
LOC: ERS 08:43 → CCU 10:29 → IMCU/EMU 11-12 17:35
PROVIDERS: ADMIT Family Medicine; ATTEND Family Medicine
PROC: 8E0ZXY6 Isolation (ICD-10-PCS; 2021-11-02)
PROC: 0D9670Z Drainage of Stomach with Drainage Device, Via Natural or Artificial Opening (ICD-10-PCS; 2021-11-02)
PROC: 0DH63UZ Insertion of Feeding Device into Stomach, Percutaneous Approach (ICD-10-PCS; principal; 2021-11-12)
DX: I62.00 Nontraumatic subdural hemorrhage, unspecified (principal); U07.1 COVID-19; E11.00 Type 2 diabetes mellitus with hyperosmolarity without nonketotic hyperglycemic-hyperosmolar coma (NKHHC); G93.6 Cerebral edema; G93.5 Compression of brain; J12.82 Pneumonia due to coronavirus disease 2019; G81.91 Hemiplegia, unspecified affecting right dominant side; I16.1 Hypertensive emergency; N39.0 Urinary tract infection, site not specified; E87.0 Hyperosmolality and hypernatremia; E87.1 Hypo-osmolality and hyponatremia; G93.49 Other encephalopathy; E87.6 Hypokalemia; R13.12 Dysphagia, oropharyngeal phase; R47.01 Aphasia; E03.9 Hypothyroidism, unspecified; M16.0 Bilateral primary osteoarthritis of hip; N18.30 Chronic kidney disease, stage 3 unspecified; I12.9 Hypertensive chronic kidney disease with stage 1 through stage 4 chronic kidney disease, or unspecified chronic kidney disease; E11.22 Type 2 diabetes mellitus with diabetic chronic kidney disease; R79.89 Other specified abnormal findings of blood chemistry; B96.20 Unspecified Escherichia coli [E. coli] as the cause of diseases classified elsewhere; Z28.82 Immunization not carried out because of caregiver refusal; Z79.899 Other long term (current) drug therapy; Z79.890 Hormone replacement therapy; Z74.01 Bed confinement status; Z98.890 Other specified postprocedural states
CPT/HCPCS: 36415; 36600; 51702; 70450; 71045; 80048; 80053; 80061; 80202; 81001; 81003; 82805; 83735; 83930; 84100; 84443; 85007; 85025; 85027; 85610; 85730; 86140; 87040; 87077; 87086; 87186; 93005; 93970; 96365; 96375; A4217; J0360; J2150; J2185; J2704; J3370; J3475; J3480; J3490; J7050; J7799; S0028; U0002